=== PATIENT | female | born 1970 | race African-American/Black ===

== ENCOUNTER 2016-12-17 10:50 | Outpatient (RCR) | payer SELFPAY | END 2017-01-08 12:47 | disposition home or self-care (01) | LOC: WSOT 10:50 | DX: M79.645 Pain in left finger(s) (principal); Z87.828 Personal history of other (healed) physical injury and trauma ==

== ENCOUNTER 2020-09-23 06:57 | Day surgery (SDC) | payer SELFPAY ==
[~2020-09-23] VITALS: Ht 165.1 cm; Wt 105.3 kg
[2020-09-23] VITALS (7 sets, daily range): BP systolic 107–126; BP diastolic 61–72; PULSE 66–85; TEMP 97.4–98.1
[2020-09-23] MEDS ORDERED: VALTREX 50500 MG/TAB PO (07:50)
[2020-09-23] MEDS ORDERED: PRILOSEC 20MG20 MG PO (07:50)
--- NOTE | 2020-09-23 08:57 | NUR ---
Patient to the OR at this time with ROTARY SHE[employer] CUTTERSTAN Hopson. Her belongings are taken to the PACU.
--- NOTE | 2020-09-23 09:32 | NUR ---
Initial visit; Patient had requested prayer prior to her procedure. Rotoprinter offered encouragement along with prayer for a successful Procedure and rapid and thorough healing.
[2020-09-23] MEDS ORDERED: NORCO 325 MG-51 TAB PO (09:53)
== END 2020-09-23 12:25 | disposition home or self-care (01) ==
LOC: SDCO 06:57
DX: K80.10 Calculus of gallbladder with chronic cholecystitis without obstruction (principal); D64.9 Anemia, unspecified; M19.90 Unspecified osteoarthritis, unspecified site; K21.9 Gastro-esophageal reflux disease without esophagitis
CPT/HCPCS: J0690; J1100; J1885; J2405; J2704; J2710; J3010; J7120